=== PATIENT | male | born 1990 ===

== ENCOUNTER 2016-08-04 13:06 | Inpatient (IN) | payer SELFPAY ==
[~2016-08-04] VITALS: Ht 188 cm; Wt 105.7 kg
[~2016-08-04 13:06] MED LIST: CEPH500C3 PO; IBUP800T23 PO
[2016-08-04 13:09] VITALS: BP 139/94; PULSE 126; RESP 17; TEMP 98.2; O2SAT 99
[2016-08-04 13:53] VITALS: PULSE 94; RESP 16; O2SAT 97
--- NOTE | 2016-08-04 14:14 | PD ---
HPI Chief Complaint: Headache Time Seen by Provider: 13:58 Travel History International Travel<30 days: No Contact w/Intl Traveler<30days: No Traveled to known affect area: No History of Present Illness HPI 25-year-old male came to the emergency room with history of headache and vomiting since yesterday. Patient says he also has the body aches. He thought he had fever with chills but he did not measure his temperature. He is been taking Advil for the headache. His initial vital signs when he came in to triage had a heart rate of 126. Then it came down to the 90s. He was afebrile. He is otherwise a healthy person. Patient says he gets usual headache 7 on then but he's never had this kind of headache in the past. FOR[facility]LY [facility], LATER [facility] Past Medical History Narrative Medical List of his past medical, surgical, social and family history was reviewed from the nursing note. Social History Alcohol Use: No Tobacco Use: No Substance Use: No Allergies-Medications (Allergen,Severity, Reaction): Coded Allergies: No Known Allergies (Unverified , 08/04/16) Comments No known drug allergies. Reported Meds & Prescriptions Reported Meds & Active Scripts Active No Active Prescriptions or Reported Medications Narrative Medication List of his home medications reviewed from the nursing note. Review of Systems Except as stated in HPI: all other systems reviewed are Neg Physical Exam Narrative GENERAL: Awake, alert, mild distress SKIN: Focused skin assessment warm/dry. HEAD: Atraumatic. Normocephalic. EYES: Pupils equal and round. No scleral icterus. No injection or drainage. ENT: No nasal bleeding or discharge. Mucous membranes pink and moist. NECK: Trachea midline. No JVD. No signs of meningismus or neck stiffness. CARDIOVASCULAR: Regular rate and rhythm. No murmur appreciated. RESPIRATORY: No accessory muscle use. Clear to auscultation. Breath sounds equal bilaterally. GASTROINTESTINAL: Abdomen soft, non-tender, nondistended. Hepatic and splenic margins not palpable. MUSCULOSKELETAL: No obvious deformities. No clubbing. No cyanosis. No edema. NEUROLOGICAL: Awake and alert. No obvious cranial nerve deficits. Motor grossly within normal limits. Normal speech. PSYCHIATRIC: Appropriate mood and affect; insight and judgment normal. Data Data Last Documented VS Vital Signs Date Time Temp Pulse Resp B/P Pulse Ox O2 Delivery O2 Flow Rate FiO2 08/04/16 15:45 94 16 128/78 100 Room Air 08/04/16 13:09 98.2 Orders Complete Blood Count With Diff (08/04/16 14:16) Basic Metabolic Panel (Bmp) (08/04/16 14:16) Ct Brain W/O Iv Contrast(Rout) (08/04/16 14:16) Ecg Monitoring (08/04/16 14:16) Iv Access Insert/Monitor (08/04/16 14:16) Oximetry (08/04/16 14:16) Sodium Chloride 0.9% Flush (Ns Flush) (08/04/16 14:30) Ondansetron Inj (Zofran Inj) (08/04/16 14:30) Metoclopramide Inj (Reglan Inj) (08/04/16 14:30) Sodium Chlor 0.9% 1000 Ml Inj (Ns 1000 M (08/04/16 14:16) Blood Culture (08/04/16 15:11) Lactic Acid (08/04/16 15:11) Influenzae A/B Antigen (08/04/16 15:11) Ceftriaxone Inj (Rocephin Inj) (08/04/16 15:15) Sodium Chlor 0.9% 1000 Ml Inj (Ns 1000 M (08/04/16 16:00) Creatine Kinase (Cpk) (08/04/16 14:33) Csf Cell Count + Differential (08/04/16 16:08) Csf Culture And Gram Stain (08/04/16 16:08) Glucose, Csf (08/04/16 16:08) Total Protein, Csf (08/04/16 16:08) Csf Hsv I/Ii Dna,Pcr (08/04/16 16:08) Csf Cytomegalovirus Dna (08/04/16 16:08) Lidocai-Epi 2%-1:100,000 Inj (Xylocaine- (08/04/16 16:30) CKMB (08/04/16 14:33) CKMB% (08/04/16 14:33) Admit Order (Ed Use Only) (08/04/16 17:28) Labs Laboratory Tests Test 08/04/16 08/04/16 08/04/16 14:33 15:38 16:50 White Blood Count 29.4 TH/MM3 Red Blood Count 6.38 MIL/MM3 Hemoglobin 17.1 GM/DL Hematocrit 51.2 % Mean Corpuscular Volume 80.4 FL Mean Corpuscular Hemoglobin 26.8 PG Mean Corpuscular Hemoglobin 33.4 % Concent Red Cell Distribution Width 13.2 % Platelet Count 347 TH/MM3 Mean Platelet Volume 9.1 FL Neutrophils (%) (Auto) 84.6 % Lymphocytes (%) (Auto) 8.0 % Monocytes (%) (Auto) 7.3 % Eosinophils (%) (Auto) 0.0 % Basophils (%) (Auto) 0.1 % Neutrophils # (Auto) 24.8 TH/MM3 Lymphocytes # (Auto) 2.4 TH/MM3 Monocytes # (Auto) 2.1 TH/MM3 Eosinophils # (Auto) 0.0 TH/MM3 Basophils # (Auto) 0.0 TH/MM3 CBC Comment DIFF FINAL Differential Comment Sodium Level 133 MEQ/L Potassium Level 4.1 MEQ/L Chloride Level 92 MEQ/L Carbon Dioxide Level 20.7 MEQ/L Anion Gap 20 MEQ/L Blood Urea Nitrogen 50 MG/DL Creatinine 4.08 MG/DL Estimat Glomerular Filtration 18 ML/MIN Rate Random Glucose 98 MG/DL Calcium Level 9.8 MG/DL Total Creatine Kinase 7339 U/L Creatine Kinase MB 21.8 NG/ML Creatine Kinase MB % 0.3 % Troponin I 0.07 NG/ML Lactic Acid Level 2.1 mmol/L CSF Volume (Tube 1) 1.7 ML CSF Supernatant Color (tube 1) CLEAR CSF Gross Blood (Tube 1) 0 CSF Volume (Tube 2) 1.5 ML CSF Supernatant Color (tube 2) CLEAR CSF Gross Blood (Tube 2) 0 CSF Volume (Tube 3) 2.0 ML CSF Supernatant Color (tube 3) CLEAR CSF Gross Blood (Tube 3) 0 CSF Volume (Tube 4) 2.0 ML CSF Supernatant Color (tube 4) CLEAR CSF Gross Blood (Tube 4) 0 CSF WBC (Tube 4) 2 /MM3 CSF RBC (Tube 4) 2 /MM3 CSF Neutrophils 0 % CSF Lymphocytes 50 % CSF Monocytes 50 % CSF Glucose 76 MG/DL CSF Total Protein 33.6 MG/DL CSF Cytomegalovirus DNA Quant Negative (PCR) Cytomegalovirus Specimen CSF Source Herpes Simplex Virus I DNA Negative (PCR) Herpes Simplex Virus II DNA Negative (PCR) [facility] Medical Decision Making Medical Screen Exam Complete: Yes Emergency Medical Condition: Yes Medical Record Reviewed: Yes Differential Diagnosis Viral illness, cluster headache, migraine Narrative Course 3:09 PM awaiting for the blood test results as well as CT scan to be done and resulted. Patient is getting IV fluid and Reglan. Also Zofran. 3:10 PM CBC is back and patient has significant leukocytosis with a left shift. Awaiting for the differential. 4:10 PM patient continues to have abnormal labs. Renal function is severely elevated. I've ordered a second liter of IV fluid bolus. Patient probably has RTA. Anion gap is elevated. Bicarbonate is low. He is in metabolic acidosis. I've explained all this to the patient. Getting ready to do the spinal tap. CT scan report came back and within normal limit. Awaiting for the hospitalist to call back for admission. Patient has given consent for the spinal tap as well. 5:27 PM CPK came back and is 7000. Patient is admitted to the hospitalist. Given the presentation there is a possibility of viral myositis. Critical Care Narrative Aggregate critical care time was 60 minutes. Time to perform other separately billable procedures was not included in the critical care time. My time did not include minutes spent treating any other patients simultaneously or on activities that did not directly contribute to the patient's treatment. The services I provided to this patient were to treat and/or prevent clinically significant deterioration that could result in: Leukocytosis, possible meningitis, acute renal failure, metabolic acidosis, fluid resuscitation I provided critical care services requiring my management, as noted below: Chart data review, documentation time, medication orders and management, vital sign assessments/reviewing monitor data, ordering and reviewing lab tests, ordering and interpreting/reviewing x-rays and diagnostic studies, care of the patient and discussion of the patient with the admitting physicians. Procedures Procedure Narrative After the risks and benefits were discussed the following procedure was performed: LUMBAR PUNCTURE: The patient was placed in the left lateral decubitus position. The lumbar area of the back was prepped with Betadine and sterilely draped. The L3 -- L4 interspace was infiltrated with 1% lidocaine plain. Number 18 gauge LP needle was placed in the interspace. Opening pressure deferred. Number 10 milliliters of clear CSF were obtained. Patient tolerated procedure well. EKG Prior to Arrival: No Diagnosis Primary Impression: rule out meningitis Additional Impressions: Acute renal failure Qualified Code: N17.9 - Acute renal failure, unspecified acute renal failure type Increased anion gap metabolic acidosis Leukocytosis Qualified Code: D72.828 - Other elevated white blood cell (WBC) count Rhabdomyolysis Qualified Code: M62.82 - Non-traumatic rhabdomyolysis Admitting Information Admitting Physician Requests: Admit Scripts No Active Prescriptions or Reported Meds Santos Claire MD August 04, 2016 14:14
[2016-08-04] MEDS ORDERED: SODIUM CHLOR 0.9% 1000 ML INJ 1,000 ML IV ONE ×2 (14:16→16:00)
[2016-08-04] MEDS ORDERED: METOCLOPRAMIDE HCL 10 MG/2 ML VIAL IVP ONE (14:30)
[2016-08-04] MEDS ORDERED: ONDANSETRON HCL 4 MG/2 ML VIAL IVP ONE (14:30)
[2016-08-04] MEDS ORDERED: SODIUM CHLORIDE 0.9% FLUSH 10 ML FLUSH IVF PRN (14:30)
[2016-08-04 14:31] VITALS: O2SAT 98
[2016-08-04 15:07] LABS: AUTOMATED NEUTROPHIL # 24.8 TH/MM3 (1.8-7.7); BASOPHIL % 0.1 % (0.0-2.0); HEMATOCRIT 51.2 % (39.0-51.0); HEMO FLAGS DIFF FINAL; LYMPHOCYTE # 2.4 TH/MM3 (1.0-4.8); MEAN CELL VOLUME 80.4 FL (80.0-100.0); MEAN CORPUSCULAR HEMOGLOBIN 26.8 PG (27.0-34.0); MEAN CORPUSCULAR HGB CONC 33.4 % (32.0-36.0); MONO % 7.3 % (0.0-8.0); NEUT % 84.6 % (16.0-70.0); PLATELET COUNT 347 TH/MM3 (150-450); RED BLOOD COUNT 6.38 MIL/MM3 (4.50-5.90); RED CELL DISTRIBUTION WIDTH 13.2 % (11.6-17.2); WHITE BLOOD COUNT 29.4 TH/MM3 (4.0-11.0)
[2016-08-04] MEDS ORDERED: cefTRIAXone INJ 2,000 MG in SODIUM CHLORIDE 0.9% INJ 100 ML IV ONE (15:15)
--- NOTE | 2016-08-04 15:43 | RADRPT ---
EXAM DATE/TIME: 08/04/2016 15:21 [place] COMPARISON: No previous studies available for comparison. INDICATIONS : Cephalgia with nausea and vomiting. RADIATION DOSE: 40.41 CTDIvol (mGy) MEDICAL HISTORY : None SURGICAL HISTORY : None. ENCOUNTER: Initial ACUITY: 1 day PAIN SCALE: 5/10 LOCATION: Bilateral cranial TECHNIQUE: Multiple contiguous axial images were obtained of the head. Using automated exposure control and adj ustment of the mA and/or kV according to patient size, radiation dose was kept as low as reasonably a chievable to obtain optimal diagnostic quality images. FINDINGS: CEREBRUM: The ventricles are normal for age. No evidence of midline shift, mass lesion, hemorrhage or acute in farction. No extra-axial fluid collections are seen. POSTERIOR FOSSA: The cerebellum and brainstem are intact. The 4th ventricle is midline. The cerebellopontine angle i s unremarkable. EXTRACRANIAL: The visualized portion of the orbits is intact. SKULL: The calvaria is intact. No evidence of skull fracture. CONCLUSION: 1. No acute intracranial abnormalities identified. Joe Whitfield MD on August 04, 2016 at 15:40 Board Certified Radiologist. This report was verified electronically.
[2016-08-04 15:45] VITALS: BP 128/78; PULSE 94; RESP 16; O2SAT 100
[2016-08-04 15:53] LABS: BICARBONATE 20.7 MEQ/L (21.0-32.0); POTASSIUM 4.1 MEQ/L (3.5-5.1)
[2016-08-04] MEDS ORDERED: LIDOCAINE 2%/EPINEPHrine 1:100,000 30ML MDV INFIL ONE (16:30)
[2016-08-04 16:51] LABS: CKMB 21.8 NG/ML (0.5-3.6)
[2016-08-04] MEDS ORDERED: ONDANSETRON HCL 4 MG/2 ML VIAL IVP PRN (17:45)
[2016-08-04] MEDS ORDERED: BISACODYL 10 MG SUPP RECTAL PRN (17:45)
[2016-08-04] MEDS ORDERED: NALOXONE HCL 0.4 MG/ML AMP IV PRN (17:45)
[2016-08-04] MEDS ORDERED: SODIUM CHLORIDE 0.9% FLUSH 10 ML FLUSH IV FLUSH PRN (17:45)
--- NOTE | 2016-08-04 18:07 | HHI.HP ---
[facility] No Primary Care Physician Admission Diagnosis r/o meningitis, acute renal failure, rhabdomyolysis Diagnoses: Chief Complaint: nausea, vomit and headache Travel History International Travel<30 Days: No Contact w/Intl Traveler <30 Da: No Traveled to Known Affected Are: No History of Present Illness This is a pleasant 25 y/o male who came to ER with nausea, vomit since yesterday at Noon time, as per his Fiance he had 8 episodes of emesis, had chills, at 8 PM started with muscle cramps and spams, headache generalized since yesterday night but worsened today, He thought he had fever with chills but he did not measure his temperature. He is been taking Advil for the headache. His initial vital signs when he came in to triage had a heart rate of 126. Then it came down to the 90s. He was afebrile. He is otherwise a healthy person. Patient says he gets usual headache 7 on then but he's never had this kind of headache in the past. seen completely asymptomatic in his bedroom in the presence of his Mother, his Father Mr. Yann Stephenson and his Fiance. 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 Review of Systems Except as stated in HPI: all other systems reviewed are Neg Past Family Social History Past Medical History Denies any past medical history Past Surgical History Left Tibia fracture post Sport trauma status post surgery Reported Medications Reported Meds & Active Scripts Active No Active Prescriptions or Reported Medications Allergies: Coded Allergies: No Known Allergies (Unverified , 08/04/16) Active Ordered Medications Current Medications Medications (Trade) Dose Ordered Sig/Park Route Start Time Stop Time Status Last Admin Sodium Chloride 2 ml 2 ml UNSCH PRN IVF 08/04/16 14:30 (NS 1000 ml Inj) 1,000 ml @ 300 mls/hr Q3H20M IV 08/04/16 17:38 UNV (NS Flush) 2 ml UNSCH PRN IV FLUSH 08/04/16 17:45 UNV (NS Flush) 2 ml BID IV FLUSH 08/04/16 21:00 UNV (Tylenol) 650 mg Q4H PRN PO 08/04/16 17:45 UNV (Zofran Inj) 4 mg Q6H PRN IVP 08/04/16 17:45 UNV (Dulcolax Supp) 10 mg DAILY PRN RECTAL 08/04/16 17:45 UNV (Narcan Inj) 0.4 mg UNSCH PRN IV 08/04/16 17:45 UNV Family History asked and denies. Social History Lives with his fiance and denies toxic habits. alcohol socially. Physical Exam Vital Signs Vital Signs Date Time Temp Pulse Resp B/P Pulse Ox O2 Delivery O2 Flow Rate FiO2 08/04/16 15:45 94 16 128/78 100 Room Air 08/04/16 14:31 98 Room Air 08/04/16 13:53 94 16 97 Room Air 08/04/16 13:09 98.2 126 17 139/94 99 Physical Exam GENERAL: This is a well-nourished, well-developed patient, in no apparent distress. SKIN: No rashes, ecchymoses or lesions. Cool and dry. HEAD: Atraumatic. Normocephalic. No temporal or scalp tenderness. EYES: Pupils equal round and reactive. Extraocular motions intact. No scleral icterus. No injection or drainage. ENT: Nose without bleeding, purulent drainage or septal hematoma. Throat without erythema, tonsillar hypertrophy or exudate. Uvula midline. Airway patent. NECK: Trachea midline. No JVD or lymphadenopathy. Supple, nontender, no meningeal signs. CARDIOVASCULAR: Regular rate and rhythm without murmurs, gallops, or rubs. RESPIRATORY: Clear to auscultation. Breath sounds equal bilaterally. No wheezes , rales, or rhonchi. GASTROINTESTINAL: Abdomen soft, non-tender, nondistended. No hepato-splenomegaly , or palpable masses. No guarding. MUSCULOSKELETAL: Extremities without clubbing, cyanosis, or edema. No joint tenderness, effusion, or edema noted. No calf tenderness. Negative Homans sign bilaterally. NEUROLOGICAL: Awake and alert. Cranial nerves II through XII intact. Motor and sensory grossly within normal limits. Five out of 5 muscle strength in all muscle groups. Normal speech. Laboratory Laboratory Tests Test 5/308/04/16 08/04/16 14:33 15:38 16:50 White Blood Count 29.4 Red Blood Count 6.38 Hemoglobin 17.1 Hematocrit 51.2 Mean Corpuscular Volume 80.4 Mean Corpuscular Hemoglobin 26.8 Mean Corpuscular Hemoglobin 33.4 Concent Red Cell Distribution Width 13.2 Platelet Count 347 Mean Platelet Volume 9.1 Neutrophils (%) (Auto) 84.6 Lymphocytes (%) (Auto) 8.0 Monocytes (%) (Auto) 7.3 Eosinophils (%) (Auto) 0.0 Basophils (%) (Auto) 0.1 Neutrophils # (Auto) 24.8 Lymphocytes # (Auto) 2.4 Monocytes # (Auto) 2.1 Eosinophils # (Auto) 0.0 Basophils # (Auto) 0.0 CBC Comment DIFF FINAL Differential Comment Sodium Level 133 Potassium Level 4.1 Chloride Level 92 Carbon Dioxide Level 20.7 Anion Gap 20 Blood Urea Nitrogen 50 Creatinine 4.08 Estimat Glomerular Filtration 18 Rate Random Glucose 98 Calcium Level 9.8 Total Creatine Kinase 7339 Creatine Kinase MB 21.8 Creatine Kinase MB % 0.3 Lactic Acid Level 2.1 CSF Glucose 76 CSF Total Protein 33.6 Date/Time Procedure Status Source Growth 08/04/16 16:50 Gram Stain - Final Resulted Cerebral Spinal Fluid Lumbar Puncture 08/04/16 16:50 CSF Culture Resulted Cerebral Spinal Fluid Lumbar Puncture Pending 08/04/16 15:38 Influenza Types A,B Antigen ([facility]) - Final Complete Nasal Aspirate NEGATIVE FOR FLU A AND B ANTIGEN.... 08/04/16 15:37 Aerobic Blood Culture Received Blood Peripheral Pending 08/04/16 15:37 Anaerobic Blood Culture Received Blood Peripheral Pending Result Diagram: 08/04/16 1433 08/04/16 1433 Imaging Last Impressions Head CT 08/04/16 1416 Signed Impressions: Service Date/Time: Thursday, August 04, 2016 15:21 - CONCLUSION: 1. No acute intracranial abnormalities identified. Joe Whitfield MD Assessment and Plan Assessment and Plan 1. Rhabdomyolysis probable related to his new job where the patient has to work physically and not eating or drinking properly given 2 Liters of water, will continue NS at 300 ml per hour and follow CK levels 2. Acute Renal Injury probable pre renal and also Rhabdomyolysis may play a role in this pathogenesis, following renal function 3. questionable meningitis or Viral Myositis, I think all is related to his actual history of working in the heat and not eating or drinking properly, his WBC count is over 24, also has metabolic acidosis, may need Bicarbonate will follow new BMP after IV fluids given. Lactic Acid, Blood cultures, continue Ceftriaxone by now and may add Vancomycin depend of new tests recommended. DVT prophylaxis with SCDs Code Status Full Code. Discussed Condition With Discussed with patient, his Fiance, his Father and Mother. all questions answered to the best of my abilities. I had the pleasure to talk about this case with Doctor Santos Claire appreciated. Physician Certification 2 Midnight Certification Type: Admission for Inpatient Services Order for Inpatient Services The services are ordered in accordance with Medicare regulations or non- Medicare payer requirements, as applicable. In the case of services not specified as inpatient-only, they are appropriately provided as inpatient services in accordance with the 2-midnight benchmark. Estimated LOS (days): 3 days is the estimated time the patient will need to remain in the hospital, assuming treatment plan goals are met and no additional complications. Post-Hospital Plan: Home Osmel Lyons MD August 04, 2016 18:07
[2016-08-04] MEDS: ACETAMINOPHEN 325 MG TAB PO PRN ×2 (19:13→23:34)
[2016-08-04 19:43] LABS: GROSS BLOOD TUBE #1 0 (0); GROSS BLOOD TUBE #2 0 (0); GROSS BLOOD TUBE #3 0 (0); SUPERNATE COLOR TUBE #1 CLEAR (CLEAR); SUPERNATE COLOR TUBE #2 CLEAR (CLEAR); SUPERNATE COLOR TUBE #3 CLEAR (CLEAR); VOLUME TUBE # 1 1.7 ML; VOLUME TUBE # 2 1.5 ML
[2016-08-04 19:44] LABS: CSF LYMPHOCYTES 50 %; CSF MONOCYTES 50 %; CSF NEUTROPHILS 0 %; GROSS BLOOD TUBE #4 0 (0); SUPERNATE COLOR TUBE #4 CLEAR (CLEAR); WBC TUBE #4 2 /MM3 (0-10)
[2016-08-04 20:00] VITALS: BP 142/86; PULSE 80; RESP 18; TEMP 97.6; O2SAT 98
[2016-08-04] MEDS: SODIUM CHLOR 0.9% 1000 ML INJ 1,000 ML IV SCH ×2 (21:17→21:18)
[2016-08-04] MEDS: SODIUM CHLORIDE 0.9% FLUSH 10 ML FLUSH IV FLUSH SCH (21:18)
[2016-08-04 23:49] LABS: BICARBONATE 22.8 MEQ/L (21.0-32.0); POTASSIUM 3.5 MEQ/L (3.5-5.1)
[2016-08-05] VITALS (9 sets, daily range): BP systolic 122–141; BP diastolic 60–77; PULSE 72–82; RESP 17–20; TEMP 96.6–99.8; O2SAT 96–99
[2016-08-05 00:26] LABS: CKMB 26.6 NG/ML (0.5-3.6)
[2016-08-05] MEDS: SODIUM CHLOR 0.9% 1000 ML INJ 1,000 ML IV SCH ×4 (01:28→18:20)
[2016-08-05] MEDS ORDERED: cefTRIAXone INJ 2,000 MG in SODIUM CHLORIDE 0.9% INJ 100 ML IV SCH (03:30)
[2016-08-05] MEDS: ACETAMINOPHEN 325 MG TAB PO PRN ×3 (04:54→18:19)
[2016-08-05 05:39] LABS: AUTOMATED NEUTROPHIL # 12.4 TH/MM3 (1.8-7.7); BASOPHIL % 0.1 % (0.0-2.0); HEMO FLAGS DIFF FINAL; LYMPHOCYTE # 3.1 TH/MM3 (1.0-4.8); MEAN CELL VOLUME 81.5 FL (80.0-100.0); MEAN CORPUSCULAR HEMOGLOBIN 26.7 PG (27.0-34.0); MEAN CORPUSCULAR HGB CONC 32.7 % (32.0-36.0); MONO % 8.6 % (0.0-8.0); NEUT % 73.3 % (16.0-70.0); PLATELET COUNT 234 TH/MM3 (150-450); RED BLOOD COUNT 5.15 MIL/MM3 (4.50-5.90); RED CELL DISTRIBUTION WIDTH 13.4 % (11.6-17.2); WHITE BLOOD COUNT 16.9 TH/MM3 (4.0-11.0)
[2016-08-05 06:13] LABS: BICARBONATE 23.2 MEQ/L (21.0-32.0); POTASSIUM 3.8 MEQ/L (3.5-5.1)
[2016-08-05 06:29] LABS: CKMB 24.3 NG/ML (0.5-3.6)
--- NOTE | 2016-08-05 08:23 | HHI.PR ---
Subjective Remarks This is a pleasant 25 y/o male who came to ER with nausea, vomit since yesterday at Noon time, as per his Fiance he had 8 episodes of emesis, had chills, at 8 PM started with muscle cramps and spams, headache generalized since yesterday night but worsened today, He thought he had fever with chills but he did not measure his temperature. He is been taking Advil for the headache. His initial vital signs when he came in to triage had a heart rate of 126. Then it came down to the 90s. He was afebrile. He is otherwise a healthy person. Patient says he gets usual headache 7 on then but he's never had this kind of headache in the past. seen completely asymptomatic in his bedroom in the presence of his Mother, his Father Mr. Yann Stephenson and his Fiance. 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 08/05: Seen in his bedroom in the presence of his Fiance, improving condition, no Nausea, vomit or diarrhea, Creatinine today 1.29 CK level continue increased and worsening on initial laboratory test, will continue IV fluids, Nausea, vomit or Diarrhea. Objective Vital Signs Date Time Temp Pulse Resp B/P Pulse Ox O2 Delivery O2 Flow Rate FiO2 08/05/16 08:00 97.8 76 17 127/60 98 08/05/16 04:00 98.3 79 18 122/65 99 08/05/16 00:00 98.1 80 18 133/71 96 08/04/16 20:00 97.6 80 18 142/86 98 08/04/16 15:45 94 16 128/78 100 Room Air 08/04/16 14:31 98 Room Air 08/04/16 13:53 94 16 97 Room Air 08/04/16 13:09 98.2 126 17 139/94 99 I/O 08/04/16 08/04/16 08/04/16 08/05/16 08/05/16 08/05/16 07:00 15:00 23:00 07:00 15:00 23:00 Intake Total 480 ml 2013 ml Output Total 400 ml Balance 80 ml 2014 ml Intake Oral 480 ml 320 ml IV Total 1694 ml Output Urine Total 400 ml # Voids 2 # Bowel Movements 0 0 Result Diagram: 08/05/16 0443 08/05/16 0443 Imaging Last Impressions Head CT 08/04/16 1416 Signed Impressions: Service Date/Time: Thursday, August 04, 2016 15:21 - CONCLUSION: 1. No acute intracranial abnormalities identified. Joe Whitfield MD Procedures No procedures performed. Other Results Laboratory Tests Test 08/04/16 08/04/16 08/04/16 08/05/16 15:38 16:50 23:02 04:43 Lactic Acid Level 2.1 mmol/L CSF Volume (Tube 1) 1.7 ML CSF Supernatant Color (tube 1) CLEAR CSF Gross Blood (Tube 1) 0 CSF Volume (Tube 2) 1.5 ML CSF Supernatant Color (tube 2) CLEAR CSF Gross Blood (Tube 2) 0 CSF Volume (Tube 3) 2.0 ML CSF Supernatant Color (tube 3) CLEAR CSF Gross Blood (Tube 3) 0 CSF Volume (Tube 4) 2.0 ML CSF Supernatant Color (tube 4) CLEAR CSF Gross Blood (Tube 4) 0 CSF WBC (Tube 4) 2 /MM3 CSF RBC (Tube 4) 2 /MM3 CSF Neutrophils 0 % CSF Lymphocytes 50 % CSF Monocytes 50 % CSF Glucose 76 MG/DL CSF Total Protein 33.6 MG/DL Troponin I 0.12 NG/ML White Blood Count 16.9 TH/MM3 Red Blood Count 5.15 MIL/MM3 Hemoglobin 13.7 GM/DL Hematocrit 42.0 % Mean Corpuscular Volume 81.5 FL Mean Corpuscular Hemoglobin 26.7 PG Mean Corpuscular Hemoglobin 32.7 % Concent Red Cell Distribution Width 13.4 % Platelet Count 234 TH/MM3 Mean Platelet Volume 8.7 FL Neutrophils (%) (Auto) 73.3 % Lymphocytes (%) (Auto) 18.0 % Monocytes (%) (Auto) 8.6 % Eosinophils (%) (Auto) 0.0 % Basophils (%) (Auto) 0.1 % Neutrophils # (Auto) 12.4 TH/MM3 Lymphocytes # (Auto) 3.1 TH/MM3 Monocytes # (Auto) 1.5 TH/MM3 Eosinophils # (Auto) 0.0 TH/MM3 Basophils # (Auto) 0.0 TH/MM3 CBC Comment DIFF FINAL Differential Comment Sodium Level 137 MEQ/L Potassium Level 3.8 MEQ/L Chloride Level 103 MEQ/L Carbon Dioxide Level 23.2 MEQ/L Anion Gap 11 MEQ/L Blood Urea Nitrogen 32 MG/DL Creatinine 1.63 MG/DL Estimat Glomerular Filtration 52 ML/MIN Rate Random Glucose 98 MG/DL Calcium Level 7.9 MG/DL Total Creatine Kinase 9061 U/L Creatine Kinase MB 24.3 NG/ML Creatine Kinase MB % 0.3 % Objective Remarks GENERAL: This is a well-nourished, well-developed patient, in no apparent distress. SKIN: No rashes, ecchymoses or lesions. Cool and dry. HEAD: Atraumatic. Normocephalic. No temporal or scalp tenderness. EYES: Pupils equal round and reactive. Extraocular motions intact. No scleral icterus. No injection or drainage. ENT: Nose without bleeding, purulent drainage or septal hematoma. Throat without erythema, tonsillar hypertrophy or exudate. Uvula midline. Airway patent. NECK: Trachea midline. No JVD or lymphadenopathy. Supple, nontender, no meningeal signs. CARDIOVASCULAR: Regular rate and rhythm without murmurs, gallops, or rubs. RESPIRATORY: Clear to auscultation. Breath sounds equal bilaterally. No wheezes , rales, or rhonchi. GASTROINTESTINAL: Abdomen soft, non-tender, nondistended. No hepato-splenomegaly , or palpable masses. No guarding. MUSCULOSKELETAL: Extremities without clubbing, cyanosis, or edema. No joint tenderness, effusion, or edema noted. No calf tenderness. Negative Homans sign bilaterally. NEUROLOGICAL: Awake and alert. Cranial nerves II through XII intact. Motor and sensory grossly within normal limits. Five out of 5 muscle strength in all muscle groups. Normal speech. Medications and IVs Current Medications Medications (Trade) Dose Ordered Sig/Park Route Start Time Stop Time Status Last Admin (NS 1000 ml Inj) 1,000 ml @ 300 mls/hr Q3H20M IV 08/04/16 18:30 08/05/16 03:46 (NS Flush) 2 ml UNSCH PRN IV FLUSH 08/04/16 17:45 (NS Flush) 2 ml BID IV FLUSH 08/04/16 21:00 08/04/16 21:18 (Tylenol) 650 mg Q4H PRN PO 08/04/16 17:45 08/05/16 04:54 (Zofran Inj) 4 mg Q6H PRN IVP 08/04/16 17:45 (Dulcolax Supp) 10 mg DAILY PRN RECTAL 08/04/16 17:45 Naloxone HCl 0.4 mg 0.4 mg UNSCH PRN IV 08/04/16 17:45 (Rocephin Inj/NS Inj) 100 ml @ 200 mls/hr Q12H IV 08/05/16 03:30 08/05/16 03:46 A/P Assessment and Plan 1. Rhabdomyolysis probable related to his new job where the patient has to work physically and not eating or drinking properly given 2 Liters of water, will continue IV fluids and following. 2. Acute Renal Injury Improved. 3. questionable meningitis or Viral Myositis, I think all is related to his actual history of working in the heat and not eating or drinking properly, his WBC count is over 24, also has metabolic acidosis, may need Bicarbonate will follow new BMP after IV fluids given. Lactic Acid, Blood cultures Improving, CSF negative for infection discontinued Ceftriaxone. DVT prophylaxis with SCDs Code Status Full Code. Discussed Condition With Patient, Fiance and another relative in the room, started Regular diet and following laboratory Discharge Planning Expected in am tomorrow. Osmel Lyons MD August 05, 2016 08:23
[2016-08-05] MEDS: SODIUM CHLORIDE 0.9% FLUSH 10 ML FLUSH IV FLUSH SCH ×2 (09:00→19:31)
[2016-08-05 11:26] LABS: BICARBONATE 25.8 MEQ/L (21.0-32.0); POTASSIUM 3.8 MEQ/L (3.5-5.1)
[2016-08-05 12:04] LABS: CKMB 18.9 NG/ML (0.5-3.6)
[2016-08-05] MEDS ORDERED: CYCLOBENZAPRINE HCL 10 MG TAB PO ONE (21:00)
[2016-08-06] VITALS (7 sets, daily range): BP systolic 125–148; BP diastolic 59–84; PULSE 68–85; RESP 15–20; TEMP 98.1–99.6; O2SAT 98–100
[2016-08-06] MEDS: ACETAMINOPHEN 325 MG TAB PO PRN ×4 (00:54→20:54)
[2016-08-06] MEDS: SODIUM CHLOR 0.9% 1000 ML INJ 1,000 ML IV SCH ×4 (00:55→20:54)
[2016-08-06 07:09] LABS: BICARBONATE 25.1 MEQ/L (21.0-32.0); MAGNESIUM 2.2 MG/DL (1.5-2.5); POTASSIUM 3.9 MEQ/L (3.5-5.1)
[2016-08-06 07:38] LABS: CKMB 8.8 NG/ML (0.5-3.6)
--- NOTE | 2016-08-06 09:00 | HHI.PR ---
Subjective Remarks This is a pleasant 25 y/o male who came to ER with nausea, vomit since yesterday at Noon time, as per his Fiance he had 8 episodes of emesis, had chills, at 8 PM started with muscle cramps and spams, headache generalized since yesterday night but worsened today, He thought he had fever with chills but he did not measure his temperature. He is been taking Advil for the headache. His initial vital signs when he came in to triage had a heart rate of 126. Then it came down to the 90s. He was afebrile. He is otherwise a healthy person. Patient says he gets usual headache 7 on then but he's never had this kind of headache in the past. seen completely asymptomatic in his bedroom in the presence of his Mother, his Father Mr. Yann Stephenson and his Fiance. 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 08/05: Seen in his bedroom in the presence of his Fiance, improving condition, no Nausea, vomit or diarrhea, Creatinine today 1.29 CK level continue increased and worsening on initial laboratory test, will continue IV fluids, Nausea, vomit or Diarrhea. 08/06: Patient stable no nausea, vomit or diarrhea, but continue with Headache, the patient states he developed Headache after LP performed in ER, was discussed with Interventional commercial sales specialist Doctor Joe Whitfield recommended to keep the patient resting, dark room and Caffeinated beverages and follow in am tomorrow by Anesthesiology if no improvement for Blood patch Objective Vital Signs Date Time Temp Pulse Resp B/P Pulse Ox O2 Delivery O2 Flow Rate FiO2 08/06/16 08:00 98.1 70 15 129/67 98 08/06/16 04:00 98.1 71 18 126/71 100 08/06/16 00:00 99.3 68 18 125/59 98 08/05/16 22:00 82 08/05/16 21:39 99.0 08/05/16 20:40 99.8 72 20 141/66 99 08/05/16 20:00 99.8 72 20 141/66 99 08/05/16 16:00 96.6 74 18 130/77 99 08/05/16 12:00 97.2 72 18 125/70 99 I/O 08/05/16 08/05/16 08/05/16 08/06/16 08/06/16 08/06/16 06:59 14:59 22:59 06:59 14:59 22:59 Intake Total 2013 ml 1645 ml 3499 ml 1429 ml Output Total 1625 ml 650 ml 600 ml Balance 2013 ml 20 ml 2849 ml 829 ml Intake Oral 320 ml 120 ml 320 ml 320 ml IV Total 1694 ml 1525 ml 3179 ml 1109 ml Output Urine Total 1625 ml 650 ml 600 ml # Voids 2 # Bowel Movements 0 0 0 0 Result Diagram: 08/05/16 0443 08/06/16 0527 Imaging Last Impressions Head CT 08/04/16 1416 Signed Impressions: Service Date/Time: Thursday, August 04, 2016 15:21 - CONCLUSION: 1. No acute intracranial abnormalities identified. Joe Whitfield MD Procedures No procedures performed. Other Results Laboratory Tests Test 08/04/16 08/04/16 08/05/16 08/05/16 15:38 16:50 04:43 10:39 Lactic Acid Level 2.1 mmol/L CSF Volume (Tube 1) 1.7 ML CSF Supernatant Color (tube 1) CLEAR CSF Gross Blood (Tube 1) 0 CSF Volume (Tube 2) 1.5 ML CSF Supernatant Color (tube 2) CLEAR CSF Gross Blood (Tube 2) 0 CSF Volume (Tube 3) 2.0 ML CSF Supernatant Color (tube 3) CLEAR CSF Gross Blood (Tube 3) 0 CSF Volume (Tube 4) 2.0 ML CSF Supernatant Color (tube 4) CLEAR CSF Gross Blood (Tube 4) 0 CSF WBC (Tube 4) 2 /MM3 CSF RBC (Tube 4) 2 /MM3 CSF Neutrophils 0 % CSF Lymphocytes 50 % CSF Monocytes 50 % CSF Glucose 76 MG/DL CSF Total Protein 33.6 MG/DL White Blood Count 16.9 TH/MM3 Red Blood Count 5.15 MIL/MM3 Hemoglobin 13.7 GM/DL Hematocrit 42.0 % Mean Corpuscular Volume 81.5 FL Mean Corpuscular Hemoglobin 26.7 PG Mean Corpuscular Hemoglobin 32.7 % Concent Red Cell Distribution Width 13.4 % Platelet Count 234 TH/MM3 Mean Platelet Volume 8.7 FL Neutrophils (%) (Auto) 73.3 % Lymphocytes (%) (Auto) 18.0 % Monocytes (%) (Auto) 8.6 % Eosinophils (%) (Auto) 0.0 % Basophils (%) (Auto) 0.1 % Neutrophils # (Auto) 12.4 TH/MM3 Lymphocytes # (Auto) 3.1 TH/MM3 Monocytes # (Auto) 1.5 TH/MM3 Eosinophils # (Auto) 0.0 TH/MM3 Basophils # (Auto) 0.0 TH/MM3 CBC Comment DIFF FINAL Differential Comment Troponin I 0.07 NG/ML Test 08/06/16 05:27 Sodium Level 142 MEQ/L Potassium Level 3.9 MEQ/L Chloride Level 111 MEQ/L Carbon Dioxide Level 25.1 MEQ/L Anion Gap 6 MEQ/L Blood Urea Nitrogen 15 MG/DL Creatinine 0.98 MG/DL Estimat Glomerular Filtration 94 ML/MIN Rate Random Glucose 90 MG/DL Calcium Level 8.0 MG/DL Magnesium Level 2.2 MG/DL Total Creatine Kinase 7356 U/L Creatine Kinase MB 8.8 NG/ML Creatine Kinase MB % 0.1 % Objective Remarks GENERAL: This is a well-nourished, well-developed patient, in no apparent distress. SKIN: No rashes, ecchymoses or lesions. Cool and dry. HEAD: Atraumatic. Normocephalic. No temporal or scalp tenderness. EYES: Pupils equal round and reactive. Extraocular motions intact. No scleral icterus. No injection or drainage. ENT: Nose without bleeding, purulent drainage or septal hematoma. Throat without erythema, tonsillar hypertrophy or exudate. Uvula midline. Airway patent. NECK: Trachea midline. No JVD or lymphadenopathy. Supple, nontender, no meningeal signs. CARDIOVASCULAR: Regular rate and rhythm without murmurs, gallops, or rubs. RESPIRATORY: Clear to auscultation. Breath sounds equal bilaterally. No wheezes , rales, or rhonchi. GASTROINTESTINAL: Abdomen soft, non-tender, nondistended. No hepato-splenomegaly , or palpable masses. No guarding. MUSCULOSKELETAL: Extremities without clubbing, cyanosis, or edema. No joint tenderness, effusion, or edema noted. No calf tenderness. Negative Homans sign bilaterally. NEUROLOGICAL: Awake and alert. Cranial nerves II through XII intact. Motor and sensory grossly within normal limits. Five out of 5 muscle strength in all muscle groups. Normal speech. Medications and IVs Current Medications Medications (Trade) Dose Ordered Sig/Park Route Start Time Stop Time Status Last Admin (NS 1000 ml Inj) 1,000 ml @ 150 mls/hr Q6H40M IV 08/04/16 18:30 08/06/16 00:55 (NS Flush) 2 ml UNSCH PRN IV FLUSH 08/04/16 17:45 (NS Flush) 2 ml BID IV FLUSH 08/04/16 21:00 08/05/16 19:31 (Tylenol) 650 mg Q4H PRN PO 08/04/16 17:45 08/06/16 00:54 (Zofran Inj) 4 mg Q6H PRN IVP 08/04/16 17:45 (Dulcolax Supp) 10 mg DAILY PRN RECTAL 08/04/16 17:45 (Narcan Inj) 0.4 mg UNSCH PRN IV 08/04/16 17:45 A/P Assessment and Plan 1. Rhabdomyolysis Improving on IV fluids, CK levels 7356 2. Acute Renal Injury Improved. 3. questionable meningitis or Viral Myositis, I think all is related to his actual history of working in the heat and not eating or drinking properly, his WBC count is over 24, also has metabolic acidosis, may need Bicarbonate will follow new BMP after IV fluids given. Lactic Acid, Blood cultures Improving, CSF negative for infection discontinued Ceftriaxone. 4. Spinal headache after LP performed, discussed with Interventional Radiology Doctor Joe Whitfield recommended to keep the patient resting in bed, dark room and caffeinated beverages and follow in am tomorrow if no improvement Anesthesiology consult for blood patch DVT prophylaxis with SCDs Code Status Full Code. Discussed Condition With Patient, Arsh, his Mother and Father. all questions answered to the best of my abilities. Discharge Planning Expected in am tomorrow. Osmel Lyons MD August 06, 2016 09:00
[2016-08-06 09:03] LABS: HSV 1,PCR Negative (Negative)
[2016-08-06 09:12] LABS: CMV PCR SPECIMEN SOURCE CSF (())
[2016-08-06] MEDS: SODIUM CHLORIDE 0.9% FLUSH 10 ML FLUSH IV FLUSH SCH ×2 (09:25→20:51)
[2016-08-06 19:50] LABS: CKMB 5.6 NG/ML (0.5-3.6)
[2016-08-07] VITALS: BP 132/80; PULSE 80; RESP 20; TEMP 98.9; O2SAT 97
[2016-08-07] MEDS: ACETAMINOPHEN 325 MG TAB PO PRN ×2 (01:06→07:58)
[2016-08-07] MEDS: SODIUM CHLOR 0.9% 1000 ML INJ 1,000 ML IV SCH ×4 (02:15→22:01)
[2016-08-07 04:00] VITALS: BP 128/82; PULSE 84; RESP 22; TEMP 99.8; O2SAT 98
[2016-08-07 08:00] VITALS: BP 147/87; PULSE 68; PULSE 71; RESP 17; TEMP 97.5; O2SAT 100
[2016-08-07] MEDS: SODIUM CHLORIDE 0.9% FLUSH 10 ML FLUSH IV FLUSH SCH ×2 (09:00→21:00)
--- NOTE | 2016-08-07 09:15 | HHI.PR ---
Subjective Remarks This is a pleasant 25 y/o male who came to ER with nausea, vomit since yesterday at Noon time, as per his Fiance he had 8 episodes of emesis, had chills, at 8 PM started with muscle cramps and spams, headache generalized since yesterday night but worsened today, He thought he had fever with chills but he did not measure his temperature. He is been taking Advil for the headache. His initial vital signs when he came in to triage had a heart rate of 126. Then it came down to the 90s. He was afebrile. He is otherwise a healthy person. Patient says he gets usual headache 7 on then but he's never had this kind of headache in the past. seen completely asymptomatic in his bedroom in the presence of his Mother, his Father Mr. Yann Stephenson and his Fiance. 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 08/05: Seen in his bedroom in the presence of his Fiance, improving condition, Creatinine today 1.29 CK level continue increased and worsening on initial laboratory test, will continue IV fluids. 08/06: Continue with Headache, the patient states he developed Headache after LP performed in ER, was discussed with Interventional personal security specialist Doctor Joe Whitfield recommended to keep the patient resting, dark room and Caffeinated beverages and follow in am tomorrow by Anesthesiology if no improvement for Blood patch 08/07: The patient was discussed with nurse early in am and the patient continue with Headache, his symptoms are worse when he stand up with dizziness, may need Blood patch, asked for Anesthesiology consult. no nausea, vomit or diarrhea will follow laboratory. Objective Vital Signs Date Time Temp Pulse Resp B/P Pulse Ox O2 Delivery O2 Flow Rate FiO2 08/07/16 08:00 97.5 71 17 147/87 100 08/07/16 04:00 99.8 84 22 128/82 98 08/07/16 00:00 98.9 80 20 132/80 97 08/06/16 22:00 85 08/06/16 20:00 99.6 76 20 140/84 99 08/06/16 16:00 98.3 75 20 148/78 100 08/06/16 12:00 98.8 72 20 134/75 99 I/O 08/06/16 08/06/16 08/06/16 08/07/16 08/07/16 08/07/16 07:00 15:00 23:00 07:00 15:00 23:00 Intake Total 1429 ml 1969 ml 1558 ml 1617 ml Output Total 600 ml 550 ml 700 ml Balance 829 ml 1969 ml 1008 ml 917 ml Intake Oral 320 ml 720 ml 440 ml 480 ml IV Total 1109 ml 1249 ml 1118 ml 1137 ml Output Urine Total 600 ml 550 ml 700 ml # Voids 3 # Bowel Movements 0 2 0 0 Result Diagram: 08/05/16 0443 08/06/16 0527 Imaging Last Impressions Head CT 08/04/16 1416 Signed Impressions: Service Date/Time: Thursday, August 04, 2016 15:21 - CONCLUSION: 1. No acute intracranial abnormalities identified. Joe Whitfield MD Procedures No procedures performed. Other Results Laboratory Tests Test 08/04/16 08/04/16 08/05/16 08/05/16 15:38 16:50 04:43 10:39 Lactic Acid Level 2.1 mmol/L CSF Volume (Tube 1) 1.7 ML CSF Supernatant Color (tube 1) CLEAR CSF Gross Blood (Tube 1) 0 CSF Volume (Tube 2) 1.5 ML CSF Supernatant Color (tube 2) CLEAR CSF Gross Blood (Tube 2) 0 CSF Volume (Tube 3) 2.0 ML CSF Supernatant Color (tube 3) CLEAR CSF Gross Blood (Tube 3) 0 CSF Volume (Tube 4) 2.0 ML CSF Supernatant Color (tube 4) CLEAR CSF Gross Blood (Tube 4) 0 CSF WBC (Tube 4) 2 /MM3 CSF RBC (Tube 4) 2 /MM3 CSF Neutrophils 0 % CSF Lymphocytes 50 % CSF Monocytes 50 % CSF Glucose 76 MG/DL CSF Total Protein 33.6 MG/DL CSF Cytomegalovirus DNA Quant Negative (PCR) Cytomegalovirus Specimen CSF Source Herpes Simplex Virus I DNA Negative (PCR) Herpes Simplex Virus II DNA Negative (PCR) White Blood Count 16.9 TH/MM3 Red Blood Count 5.15 MIL/MM3 Hemoglobin 13.7 GM/DL Hematocrit 42.0 % Mean Corpuscular Volume 81.5 FL Mean Corpuscular Hemoglobin 26.7 PG Mean Corpuscular Hemoglobin 32.7 % Concent Red Cell Distribution Width 13.4 % Platelet Count 234 TH/MM3 Mean Platelet Volume 8.7 FL Neutrophils (%) (Auto) 73.3 % Lymphocytes (%) (Auto) 18.0 % Monocytes (%) (Auto) 8.6 % Eosinophils (%) (Auto) 0.0 % Basophils (%) (Auto) 0.1 % Neutrophils # (Auto) 12.4 TH/MM3 Lymphocytes # (Auto) 3.1 TH/MM3 Monocytes # (Auto) 1.5 TH/MM3 Eosinophils # (Auto) 0.0 TH/MM3 Basophils # (Auto) 0.0 TH/MM3 CBC Comment DIFF FINAL Differential Comment Troponin I 0.07 NG/ML Test 08/06/16 08/06/16 05:27 16:44 Sodium Level 142 MEQ/L Potassium Level 3.9 MEQ/L Chloride Level 111 MEQ/L Carbon Dioxide Level 25.1 MEQ/L Anion Gap 6 MEQ/L Blood Urea Nitrogen 15 MG/DL Creatinine 0.98 MG/DL Estimat Glomerular Filtration 94 ML/MIN Rate Random Glucose 90 MG/DL Calcium Level 8.0 MG/DL Magnesium Level 2.2 MG/DL Total Creatine Kinase 7083 U/L Creatine Kinase MB 5.6 NG/ML Creatine Kinase MB % 0.1 % Objective Remarks GENERAL: This is a well-nourished, well-developed patient, in no apparent distress. SKIN: No rashes, ecchymoses or lesions. Cool and dry. HEAD: Atraumatic. Normocephalic. No temporal or scalp tenderness. EYES: Pupils equal round and reactive. Extraocular motions intact. No scleral icterus. No injection or drainage. ENT: Nose without bleeding, purulent drainage or septal hematoma. Throat without erythema, tonsillar hypertrophy or exudate. Uvula midline. Airway patent. NECK: Trachea midline. No JVD or lymphadenopathy. Supple, nontender, no meningeal signs. CARDIOVASCULAR: Regular rate and rhythm without murmurs, gallops, or rubs. RESPIRATORY: Clear to auscultation. Breath sounds equal bilaterally. No wheezes , rales, or rhonchi. GASTROINTESTINAL: Abdomen soft, non-tender, nondistended. No hepato-splenomegaly , or palpable masses. No guarding. MUSCULOSKELETAL: Extremities without clubbing, cyanosis, or edema. No joint tenderness, effusion, or edema noted. No calf tenderness. Negative Homans sign bilaterally. NEUROLOGICAL: Awake and alert. Cranial nerves II through XII intact. Motor and sensory grossly within normal limits. Five out of 5 muscle strength in all muscle groups. Normal speech. Medications and IVs Current Medications Medications (Trade) Dose Ordered Sig/Park Route Start Time Stop Time Status Last Admin (NS 1000 ml Inj) 1,000 ml @ 150 mls/hr Q6H40M IV 08/04/16 18:30 08/06/16 20:54 (NS Flush) 2 ml UNSCH PRN IV FLUSH 08/04/16 17:45 (NS Flush) 2 ml BID IV FLUSH 08/04/16 21:00 08/06/16 20:51 (Tylenol) 650 mg Q4H PRN PO 08/04/16 17:45 08/07/16 07:58 (Zofran Inj) 4 mg Q6H PRN IVP 08/04/16 17:45 (Dulcolax Supp) 10 mg DAILY PRN RECTAL 08/04/16 17:45 (Narcan Inj) 0.4 mg UNSCH PRN IV 08/04/16 17:45 A/P Assessment and Plan 1. Rhabdomyolysis Improving on IV fluids, CK levels 7083 Improving, will follow laboratory now that the patient continue Hospitalized. 2. Acute Renal Injury Improved. 3. questionable meningitis or Viral Myositis, I think all is related to his actual history of working in the heat and not eating or drinking properly, his WBC count is over 24, also has metabolic acidosis, may need Bicarbonate will follow new BMP after IV fluids given. Lactic Acid, Blood cultures Improving, CSF negative for infection discontinued Ceftriaxone. 4. Spinal headache after LP performed, discussed with Interventional Radiology Doctor Joe Whitfield recommended to keep the patient resting in bed, dark room and caffeinated beverages and follow in am tomorrow if no improvement Anesthesiology consult for blood patch DVT prophylaxis with SCDs Code Status Full Code. Discussed Condition With Patient, Fiance, all questions answered to the best of my abilities. Anesthesiology consult. Discharge Planning awaiting procedure and recommendations for discharge. Osmel Lyons MD August 07, 2016 09:15
[2016-08-07 10:19] LABS: BICARBONATE 26.3 MEQ/L (21.0-32.0)
[2016-08-07 10:52] LABS: CKMB 3.5 NG/ML (0.5-3.6)
[2016-08-07] MEDS ORDERED: MIDAZOLAM HCL 2 MG/2 ML VIAL ONE (11:49)
[2016-08-07 12:00] VITALS: BP 140/94; PULSE 68; RESP 16; TEMP 98.2; O2SAT 100
[2016-08-07] MEDS: ACETAMINOPHEN/HYDROcodone 325 MG/5 MG TAB PO PRN ×2 (15:56→20:05)
[2016-08-07 16:00] VITALS: BP 126/77; PULSE 75; RESP 16; TEMP 96.5; O2SAT 100
[2016-08-07 20:00] VITALS: BP 158/97; PULSE 73; RESP 18; TEMP 99.9; O2SAT 99
[2016-08-08] VITALS: BP 152/99; PULSE 63; RESP 18; TEMP 97.9; O2SAT 100
[2016-08-08] MEDS: ACETAMINOPHEN/HYDROcodone 325 MG/5 MG TAB PO PRN ×3 (00:29→08:56)
[2016-08-08 04:00] VITALS: BP 153/89; PULSE 62; RESP 18; TEMP 97.8; O2SAT 100
[2016-08-08] MEDS: SODIUM CHLOR 0.9% 1000 ML INJ 1,000 ML IV SCH (05:02)
[2016-08-08 08:00] VITALS: BP 152/91; PULSE 73; RESP 18; TEMP 98; O2SAT 99
[2016-08-08] MEDS: SODIUM CHLORIDE 0.9% FLUSH 10 ML FLUSH IV FLUSH SCH (08:03)
--- NOTE | 2016-08-08 08:27 | HHI.PR ---
Subjective Remarks This is a pleasant 25 y/o male who came to ER with nausea, vomit since yesterday at Noon time, as per his Fiance he had 8 episodes of emesis, had chills, at 8 PM started with muscle cramps and spams, headache generalized since yesterday night but worsened today, He thought he had fever with chills but he did not measure his temperature. He is been taking Advil for the headache. His initial vital signs when he came in to triage had a heart rate of 126. Then it came down to the 90s. He was afebrile. He is otherwise a healthy person. Patient says he gets usual headache 7 on then but he's never had this kind of headache in the past. seen completely asymptomatic in his bedroom in the presence of his Mother, his Father Mr. Yann Stephenson and his Fiance. 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 08/05: Seen in his bedroom in the presence of his Fiance, improving condition, Creatinine today 1.29 CK level continue increased and worsening on initial laboratory test, will continue IV fluids. 08/06: Continue with Headache, the patient states he developed Headache after LP performed in ER, was discussed with Interventional digital content specialist Doctor Joe Whitfield recommended to keep the patient resting, dark room and Caffeinated beverages and follow in am tomorrow by Anesthesiology if no improvement for Blood patch 08/07: The patient was discussed with nurse early in am and the patient continue with Headache, his symptoms are worse when he stand up with dizziness, may need Blood patch, asked for Anesthesiology consult. 08/08: Improved Headache after Blood patch, no new issues, no nausea, vomit or diarrhea, ready for discharge Home recommended bed rest for two to three days avoid exercise. Objective Vital Signs Date Time Temp Pulse Resp B/P Pulse Ox O2 Delivery O2 Flow Rate FiO2 08/08/16 08:00 98.0 73 18 152/91 99 08/08/16 04:00 97.8 62 18 153/89 100 08/08/16 00:00 97.9 63 18 152/99 100 08/07/16 20:00 99.9 73 18 158/97 99 08/07/16 16:00 96.5 75 16 126/77 100 08/07/16 12:00 Room Air 08/07/16 12:00 67 14 155/87 100 08/07/16 12:00 98.2 68 16 140/94 100 08/07/16 11:45 68 14 155/100 100 08/07/16 11:35 Room Air 08/07/16 11:35 70 14 160/104 100 I/O 08/07/16 08/07/16 08/07/16 08/08/16 08/08/16 08/08/16 07:00 15:00 23:00 07:00 15:00 23:00 Intake Total 1617 ml 1820 ml 2385 ml 1047 ml 480 ml Output Total 700 ml 1500 ml 600 ml 1075 ml Balance 917 ml 320 ml 1785 ml 1047 ml -595 ml Intake Oral 480 ml 1820 ml 360 ml 480 ml IV Total 1137 ml 2025 ml 1047 ml Output Urine Total 700 ml 1500 ml 600 ml 1075 ml # Bowel Movements 0 1 0 Result Diagram: 08/05/16 0443 08/07/16 0940 Imaging Last Impressions Head CT 08/04/16 1416 Signed Impressions: Service Date/Time: Thursday, August 04, 2016 15:21 - CONCLUSION: 1. No acute intracranial abnormalities identified. Joe Whitfield MD Procedures No procedures performed. Other Results Laboratory Tests Test 08/04/16 08/04/16 08/05/16 08/05/16 15:38 16:50 04:43 10:39 Lactic Acid Level 2.1 mmol/L CSF Volume (Tube 1) 1.7 ML CSF Supernatant Color (tube 1) CLEAR CSF Gross Blood (Tube 1) 0 CSF Volume (Tube 2) 1.5 ML CSF Supernatant Color (tube 2) CLEAR CSF Gross Blood (Tube 2) 0 CSF Volume (Tube 3) 2.0 ML CSF Supernatant Color (tube 3) CLEAR CSF Gross Blood (Tube 3) 0 CSF Volume (Tube 4) 2.0 ML CSF Supernatant Color (tube 4) CLEAR CSF Gross Blood (Tube 4) 0 CSF WBC (Tube 4) 2 /MM3 CSF RBC (Tube 4) 2 /MM3 CSF Neutrophils 0 % CSF Lymphocytes 50 % CSF Monocytes 50 % CSF Glucose 76 MG/DL CSF Total Protein 33.6 MG/DL CSF Cytomegalovirus DNA Quant Negative (PCR) Cytomegalovirus Specimen CSF Source Herpes Simplex Virus I DNA Negative (PCR) Herpes Simplex Virus II DNA Negative (PCR) White Blood Count 16.9 TH/MM3 Red Blood Count 5.15 MIL/MM3 Hemoglobin 13.7 GM/DL Hematocrit 42.0 % Mean Corpuscular Volume 81.5 FL Mean Corpuscular Hemoglobin 26.7 PG Mean Corpuscular Hemoglobin 32.7 % Concent Red Cell Distribution Width 13.4 % Platelet Count 234 TH/MM3 Mean Platelet Volume 8.7 FL Neutrophils (%) (Auto) 73.3 % Lymphocytes (%) (Auto) 18.0 % Monocytes (%) (Auto) 8.6 % Eosinophils (%) (Auto) 0.0 % Basophils (%) (Auto) 0.1 % Neutrophils # (Auto) 12.4 TH/MM3 Lymphocytes # (Auto) 3.1 TH/MM3 Monocytes # (Auto) 1.5 TH/MM3 Eosinophils # (Auto) 0.0 TH/MM3 Basophils # (Auto) 0.0 TH/MM3 CBC Comment DIFF FINAL Differential Comment Troponin I 0.07 NG/ML Test 08/06/16 08/07/16 05:27 09:40 Magnesium Level 2.2 MG/DL Sodium Level 141 MEQ/L Potassium Level 4.0 MEQ/L Chloride Level 107 MEQ/L Carbon Dioxide Level 26.3 MEQ/L Anion Gap 8 MEQ/L Blood Urea Nitrogen 9 MG/DL Creatinine 1.06 MG/DL Estimat Glomerular Filtration 85 ML/MIN Rate Random Glucose 101 MG/DL Calcium Level 8.2 MG/DL Total Creatine Kinase 6067 U/L Creatine Kinase MB 3.5 NG/ML Creatine Kinase MB % 0.1 % Objective Remarks GENERAL: This is a well-nourished, well-developed patient, in no apparent distress. SKIN: No rashes, ecchymoses or lesions. Cool and dry. HEAD: Atraumatic. Normocephalic. No temporal or scalp tenderness. EYES: Pupils equal round and reactive. Extraocular motions intact. No scleral icterus. No injection or drainage. ENT: Nose without bleeding, purulent drainage or septal hematoma. Throat without erythema, tonsillar hypertrophy or exudate. Uvula midline. Airway patent. NECK: Trachea midline. No JVD or lymphadenopathy. Supple, nontender, no meningeal signs. CARDIOVASCULAR: Regular rate and rhythm without murmurs, gallops, or rubs. RESPIRATORY: Clear to auscultation. Breath sounds equal bilaterally. No wheezes , rales, or rhonchi. GASTROINTESTINAL: Abdomen soft, non-tender, nondistended. No hepato-splenomegaly , or palpable masses. No guarding. MUSCULOSKELETAL: Extremities without clubbing, cyanosis, or edema. No joint tenderness, effusion, or edema noted. No calf tenderness. Negative Homans sign bilaterally. NEUROLOGICAL: Awake and alert. Cranial nerves II through XII intact. Motor and sensory grossly within normal limits. Five out of 5 muscle strength in all muscle groups. Normal speech. Medications and IVs Current Medications Medications (Trade) Dose Ordered Sig/Park Route Start Time Stop Time Status Last Admin (NS 1000 ml Inj) 1,000 ml @ 150 mls/hr Q6H40M IV 08/04/16 18:30 08/08/16 05:02 (NS Flush) 2 ml UNSCH PRN IV FLUSH 08/04/16 17:45 (NS Flush) 2 ml BID IV FLUSH 08/04/16 21:00 08/07/16 09:00 (Tylenol) 650 mg Q4H PRN PO 08/04/16 17:45 08/07/16 07:58 (Zofran Inj) 4 mg Q6H PRN IVP 08/04/16 17:45 (Dulcolax Supp) 10 mg DAILY PRN RECTAL 08/04/16 17:45 (Narcan Inj) 0.4 mg UNSCH PRN IV 08/04/16 17:45 ([place] 5-325 Mg) 1 tab Q4H PRN PO 08/07/16 09:45 08/08/16 05:01 A/P Assessment and Plan 1. Rhabdomyolysis Improving on IV fluids, CK levels 6067 Improving. recommended to continue plenty of fluids by mouth. 2. Acute Renal Injury Improved. 3. questionable meningitis or Viral Myositis, I think all is related to his actual history of working in the heat and not eating or drinking properly, his WBC count is over 24, also has metabolic acidosis, may need Bicarbonate will follow new BMP after IV fluids given. Lactic Acid, Blood cultures Improving, CSF negative for infection discontinued Ceftriaxone. 4. Spinal headache after LP performed, discussed with Interventional Radiology Doctor Joe Whitfield recommended to keep the patient resting in bed, dark room and caffeinated beverages and follow in am tomorrow if no improvement Anesthesiology consult for blood patch performed and improved headache. DVT prophylaxis with SCDs Code Status Full Code. Discussed Condition With Patient Discharge Planning Discharge home today. Osmel Lyons MD August 08, 2016 08:27 Osmel Lyons MD August 08, 2016 08:27
--- NOTE | 2016-08-08 09:04 | HHI.DS ---
Discharge Summary Admission Date August 04, 2016 at 17:30 Discharge Date: August 08, 2016 Admitting Diagnosis r/o meningitis, acute renal failure, rhabdomyolysis (1) Acute renal failure ICD Code: N17.9 Diagnosis: Principal (2) Leukocytosis ICD Code: D72.829 Diagnosis: Principal (3) Increased anion gap metabolic acidosis ICD Code: E87.2 Diagnosis: Principal (4) Rhabdomyolysis ICD Code: M62.82 Diagnosis: Principal Procedures Lumbar Puncture Blood patch due to Spinal headache. Brief History - From Admission This is a pleasant 25 y/o male who came to ER with nausea, vomit since yesterday at Noon time, as per his Fiance he had 8 episodes of emesis, had chills, at 8 PM started with muscle cramps and spams, headache generalized since yesterday night but worsened today, He thought he had fever with chills but he did not measure his temperature. He is been taking Advil for the headache. His initial vital signs when he came in to triage had a heart rate of 126. Then it came down to the 90s. He was afebrile. He is otherwise a healthy person. Patient says he gets usual headache 7 on then but he's never had this kind of headache in the past. seen completely asymptomatic in his bedroom in the presence of his Mother, his Father Mr. Yann Stephenson and his Fiance. 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 CBC/BMP: 08/05/16 0443 08/07/16 0940 Significant Findings Laboratory Tests Test 08/05/16 08/06/16 08/06/16 08/07/16 10:39 05:27 16:44 09:40 Blood Urea Nitrogen 26 MG/DL (7-18) Estimat Glomerular Filtration 68 ML/MIN (>89) 85 ML/MIN (>89) Rate Calcium Level 8.2 MG/DL 8.0 MG/DL 8.2 MG/DL (8.5-10.1) (8.5-10.1) (8.5-10.1) Total Creatine Kinase 9423 U/L 7356 U/L 7083 U/L 6067 U/L (39-308) (39-308) (39-308) (39-308) Creatine Kinase MB 18.9 NG/ML 8.8 NG/ML 5.6 NG/ML (0.5-3.6) (0.5-3.6) (0.5-3.6) Troponin I 0.07 NG/ML (0.02-0.05) Chloride Level 111 MEQ/L (98-107) Imaging Last Impressions Head CT 08/04/16 1416 Signed Impressions: Service Date/Time: Thursday, August 04, 2016 15:21 - CONCLUSION: 1. No acute intracranial abnormalities identified. Joe Whitfield MD PE at Discharge GENERAL: This is a well-nourished, well-developed patient, in no apparent distress. SKIN: No rashes, ecchymoses or lesions. Cool and dry. HEAD: Atraumatic. Normocephalic. No temporal or scalp tenderness. EYES: Pupils equal round and reactive. Extraocular motions intact. No scleral icterus. No injection or drainage. ENT: Nose without bleeding, purulent drainage or septal hematoma. Throat without erythema, tonsillar hypertrophy or exudate. Uvula midline. Airway patent. NECK: Trachea midline. No JVD or lymphadenopathy. Supple, nontender, no meningeal signs. CARDIOVASCULAR: Regular rate and rhythm without murmurs, gallops, or rubs. RESPIRATORY: Clear to auscultation. Breath sounds equal bilaterally. No wheezes , rales, or rhonchi. GASTROINTESTINAL: Abdomen soft, non-tender, nondistended. No hepato-splenomegaly , or palpable masses. No guarding. MUSCULOSKELETAL: Extremities without clubbing, cyanosis, or edema. No joint tenderness, effusion, or edema noted. No calf tenderness. Negative Homans sign bilaterally. NEUROLOGICAL: Awake and alert. Cranial nerves II through XII intact. Motor and sensory grossly within normal limits. Five out of 5 muscle strength in all muscle groups. Normal speech. Hospital Course This is a pleasant 25 y/o male who came to ER with nausea, vomit since yesterday at Noon time, as per his Fiance he had 8 episodes of emesis, had chills, at 8 PM started with muscle cramps and spams, headache generalized since yesterday night but worsened today, He thought he had fever with chills but he did not measure his temperature. He is been taking Advil for the headache. His initial vital signs when he came in to triage had a heart rate of 126. Then it came down to the 90s. He was afebrile. He is otherwise a healthy person. Patient says he gets usual headache 7 on then but he's never had this kind of headache in the past. seen completely asymptomatic in his bedroom in the presence of his Mother, his Father Mr. Yann Stephenson and his Fiance. 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 08/05: Seen in his bedroom in the presence of his Fiance, improving condition, Creatinine today 1.29 CK level continue increased and worsening on initial laboratory test, will continue IV fluids. 08/06: Continue with Headache, the patient states he developed Headache after LP performed in ER, was discussed with Interventional solution specialist Doctor Joe Whitfield recommended to keep the patient resting, dark room and Caffeinated beverages and follow in am tomorrow by Anesthesiology if no improvement for Blood patch 08/07: The patient was discussed with nurse early in am and the patient continue with Headache, his symptoms are worse when he stand up with dizziness, may need Blood patch, asked for Anesthesiology consult. 08/08: Improved Headache after Blood patch, no new issues, no nausea, vomit or diarrhea, ready for discharge Home recommended bed rest for two to three days avoid exercise. Assessment and Plan 1. Rhabdomyolysis Improving on IV fluids, CK levels 6067 Improving. recommended to continue plenty of fluids by mouth. 2. Acute Renal Injury Improved. 3. questionable meningitis or Viral Myositis, I think all is related to his actual history of working in the heat and not eating or drinking properly, his WBC count is over 24, also has metabolic acidosis, may need Bicarbonate will follow new BMP after IV fluids given. Lactic Acid, Blood cultures Improving, CSF negative for infection discontinued Ceftriaxone. 4. Spinal headache after LP performed, discussed with Interventional Radiology Doctor Joe Whitfield recommended to keep the patient resting in bed, dark room and caffeinated beverages and follow in am tomorrow if no improvement Anesthesiology consult for blood patch performed and improved headache. 5. Mild Hypertension secondary to IV fluids giving him 150 ml of normal saline discontinued and august discharge and follow with PCP. DVT prophylaxis with SCDs Code Status Full Code. Discussed Condition With Patient Discharge Planning Discharge home today. Pt Condition on Discharge: Good Discharge Disposition: Discharge Home Discharge Time: > 30 minutes Discharge Instructions DIET: Follow Instructions for: As Tolerated, No Restrictions Activities you can perform: Regular-No Restrictions Osmel Lyons MD August 08, 2016 09:04
== END 2016-08-08 10:51 | disposition home or self-care (01) | DRG 683 ==
LOC: NEPD 13:06 → NEDA 17:30 → N07B 18:37
PROVIDERS: ADMIT Internal Medicine; ATTEND Internal Medicine
PROC: 009U3ZX Drainage of Spinal Canal, Percutaneous Approach, Diagnostic (ICD-10-PCS; principal; 2016-08-04)
DX: N17.9 Acute kidney failure, unspecified (principal); M62.82 Rhabdomyolysis; E87.2 Acidosis; D72.829 Elevated white blood cell count, unspecified; G97.1 Other reaction to spinal and lumbar puncture; Y84.4 Aspiration of fluid as the cause of abnormal reaction of the patient, or of later complication, without mention of misadventure at the time of the procedure; I10 Essential (primary) hypertension
CPT/HCPCS: 62270; 62273; 70450; 80048; 82550; 82552; 82945; 83605; 83735; 84157; 84484; 85025; 87040; 87070; 87205; 87497; 87529; 87804; 89051; 96361; 96374; 96375; J0696; J2250; J2405; J2765; J7030

== ENCOUNTER 2017-01-13 19:07 | Emergency (ER) | payer SELFPAY ==
[~2017-01-13] VITALS: Ht 188 cm; Wt 100.0 kg
[2017-01-13 19:10] VITALS: BP 168/102; PULSE 95; RESP 15; TEMP 98.6; O2SAT 95
== END 2017-01-13 19:50 | disposition left against medical advice (07) ==
LOC: NED 19:07
DX: R53.1 Weakness (principal); Z53.21 Procedure and treatment not carried out due to patient leaving prior to being seen by health care provider
CPT/HCPCS: 99281